=== PATIENT | female | born 1960 | race Caucasian/White ===

== ENCOUNTER → 2017-01-18 | Outpatient (CLI) | payer OTHER ==
[~2017-01-18] MED LIST: FISH OIL 10001000 MG PO; OS-CAL 500500 MG PO
== END ==
LOC: MAMMO 13:46
DX: Z12.31 Encounter for screening mammogram for malignant neoplasm of breast (principal)

== ENCOUNTER → 2018-04-05 | Outpatient (CLI) | payer OTHER | END | disposition home or self-care (01) | LOC: MAMMO 07:29 | DX: Z12.31 Encounter for screening mammogram for malignant neoplasm of breast (principal) ==